=== PATIENT | born 1995 | race Caucasian/White ===

== ENCOUNTER → 2020-12-10 10:03 | Outpatient (CLI) | payer OTHER, MEDICAID, SELFPAY ==
[2020-12-10] MEDS: COVID-19 VACC, Ad26(JANSSEN)/PF 0.5 ML IM (10:10)
== END ==
PROVIDERS: Visit Provider Internal Medicine
DX: Z23 Encounter for immunization (principal)
CPT/HCPCS: 0031A; 91303